=== PATIENT | male | born 1970 | race Caucasian/White ===

== ENCOUNTER 2022-10-13 14:57 | Emergency (ER) | payer BC, MEDICAID, OTHER ==
[~2022-10-13] VITALS: Ht 167.6 cm; Wt 70.0 kg
[2022-10-13 15:29] VITALS: BP 145/80; PULSE 64; RESP 16; TEMP 97.9; O2SAT 100
[2022-10-13] MEDS ORDERED: IBUPROFEN 600MG TABLET PO ONE (16:30)
[2022-10-13] MEDS ORDERED: IBUP-2029 MT (17:10)
[2022-10-13] MEDS ORDERED: CYCL10TA21 MT (17:10)
== END 2022-10-13 17:48 | disposition home or self-care (01) ==
LOC: ER 15:10
DX: R07.89 Other chest pain (principal); V49.49XA Driver injured in collision with other motor vehicles in traffic accident, initial encounter; Y93.89 Activity, other specified; Y92.89 Other specified places as the place of occurrence of the external cause; Y99.8 Other external cause status
CPT/HCPCS: 71045; 99283